=== PATIENT | male | born 1965 | race African-American/Black ===

== ENCOUNTER 2017-06-16 11:29 | Emergency (ER) | payer MEDICAID ==
[~2017-06-16] VITALS: Ht 185.4 cm; Wt 154.2 kg
[2017-06-16 13:54] VITALS: BP 174/93
== END 2017-06-16 15:01 | disposition home or self-care (01) ==
LOC: ER 11:29
DX: J20.9 Acute bronchitis, unspecified (principal); J01.90 Acute sinusitis, unspecified; F17.210 Nicotine dependence, cigarettes, uncomplicated; I10 Essential (primary) hypertension

== ENCOUNTER 2017-11-19 06:24 | Emergency (ER) | payer MEDICAID ==
[~2017-11-19] VITALS: Ht 185.4 cm; Wt 157.9 kg
[2017-11-19 08:42] VITALS: BP 158/88
== END 2017-11-19 09:02 | disposition home or self-care (01) ==
LOC: ER 06:24
DX: J40 Bronchitis, not specified as acute or chronic (principal); I10 Essential (primary) hypertension; F17.210 Nicotine dependence, cigarettes, uncomplicated
CPT/HCPCS: 71045